=== PATIENT | female | born 1995 | race Caucasian/White ===

== ENCOUNTER 2019-06-20 11:58 | Inpatient (IN) | payer MEDICAID ==
[~2019-06-20] VITALS: Ht 167.6 cm; Wt 100.7 kg
[2019-06-20 12:00] VITALS: BP_SYST 121
[2019-06-20] MEDS ORDERED: MORPHINE 4 MG/ML INJ. SYRINGE IVP ONE ×2 (13:30→16:15)
[2019-06-20] MEDS ORDERED: DIPHENHYDRAMINE INJ 50 MG/ML VIAL IVP ONE ×2 (13:30→16:15)
[2019-06-20] MEDS ORDERED: NACL 0.9% 1,000 ML IV ONE ×2 (13:30→18:00)
[2019-06-20 14:32] LABS: BASOPHILS # (AUTO) 0.2 K/uL (0.0-0.2); BASOPHILS % (AUTO) 1.4 % (0.0-2.0); EOSINOPHILS # (AUTO) 0.2 K/uL (0.0-0.4); EOSINOPHILS % (AUTO) 1.1 % (0.0-4.0); HEMATOCRIT 43.7 % (36-48); HEMOGLOBIN 15.2 g/dL (12.0-16.0); LYMPHOCYTES # (AUTO) 3.8 K/uL (1.0-5.5); LYMPHOCYTES % (AUTO) 25.7 % (20.5-51.5); MEAN CORPUSCULAR HEMOGLOBIN 31 pg (27-31); MEAN CORPUSCULAR HGB CONC 35 % (32-36); MEAN CORPUSCULAR VOLUME 88 fL (79.0-98.0); MONOCYTES # (AUTO) 0.8 K/uL (0.0-1.0); MONOCYTES % (AUTO) 5.2 % (1.7-9.3); NEUTROPHILS # (AUTO) 9.8 K/uL (1.8-7.7); NEUTROPHILS % (AUTO) 66.6 % (40.0-70.0); PLATELET COUNT (AUTO) 459 K/uL (130-430); RED BLOOD CELL COUNT(AUTO) 4.98 MIL/uL (4.2-6.2); RED CELL DISTRIBUTION WIDTH 12.7 % (9.0-15.0); WHITE BLOOD COUNT (AUTO) 14.7 K/uL (4.8-10.8)
[2019-06-20 15:06] LABS: CALCIUM 9.6 mg/dL (8.4-11.0); CREATININE 0.65 mg/dL (0.55-1.30); POTASSIUM 4.2 mmol/L (3.5-5.1)
[2019-06-20 15:11] LABS: ALBUMIN 4.2 g/dL (3.4-4.8); TOTAL BILIRUBIN 0.5 mg/dL (0.0-1.0)
[2019-06-20 15:36] LABS: BILIRUBIN,URINE NEGATIVE (NEGATIVE); BLOOD, URINE 3+ (NEGATIVE); COLOR,URINE YELLOW (YELLOW); GLUCOSE,URINE TRACE (NEGATIVE); KETONES,URINE NEGATIVE (NEGATIVE); LEUKOCYTE ESTERASE ,URINE NEGATIVE (NEGATIVE); NITRITE, URINE NEGATIVE (NEGATIVE); PROTEIN URINE 2+ (NEGATIVE); UROBILINOGEN,URINE 0.2 (0.2-1.0)
[2019-06-20 15:40] LABS: CLARITY/URINE CLOUDY (CLEAR)
[2019-06-20 15:44] LABS: BACTERIA,URINE MANY /HPF (None Seen); WBC,URINE 0-3 /HPF (0-3)
[2019-06-20] MEDS ORDERED: cefTRIAXone 1 GM in D5W 50 ML IV ONE (15:45)
[2019-06-20] MEDS ORDERED: cefTRIAXone 1 GM IVPB PREMIX 50 ML IV ONE (16:10)
[2019-06-20] MEDS ORDERED: METFORMIN PO (17:35)
[2019-06-20] MEDS ORDERED: PROPOFOL 200MG/ 20ML VIAL (DIPRIVAN) IV ONE (18:15)
[2019-06-20] MEDS ORDERED: SEVOFLURANE 15 MIN GAS INH ONE (18:15)
[2019-06-20] MEDS ORDERED: LR 1,000 ML IV.SOLN IV ONE (18:15)
[2019-06-20] MEDS ORDERED: ROCURONIUM BROMIDE 10 MG/ML (ZEMURON) IV ONE (18:15)
[2019-06-20] MEDS ORDERED: GLYCOPYRROLATE 0.2 MG/ML VIAL IJ ONE (18:15)
[2019-06-20] MEDS ORDERED: NEOSTIGMINE METHYLSULFATE 1 MG/ML, 10 ML VIAL IVP ONE (18:15)
[2019-06-20] MEDS ORDERED: KETOROLAC TROMETHAMINE 30 MG VIAL IVP ONE (18:15)
[2019-06-20] MEDS ORDERED: ONDANSETRON HCL 4 MG/2 ML VIAL IVP ONE (18:15)
[2019-06-20] MEDS ORDERED: fentaNYL CITRATE 250 MCG/5 ML AMP IV ONE (18:15)
[2019-06-20] MEDS ORDERED: CEFAZOLIN 2 GM IVPB PREMIX 50 ML IV ONE (18:15)
[2019-06-20] MEDS ORDERED: BUPIVACAINE /EPINEPHRINE/PF 0.5% 30 ML VIAL INJ ONE (18:15)
[2019-06-20] MEDS ORDERED: MIDAZOLAM HCL 5 MG/5 ML VIAL IVP ONE (18:15)
[2019-06-20] MEDS ORDERED: METOCLOPRAMIDE HCL 10 MG/2 ML VIAL IVP PRN (21:00)
[2019-06-20] MEDS ORDERED: ACETAMINOPHEN 325 MG TABLET PO PRN (21:00)
[2019-06-20] MEDS ORDERED: ONDANSETRON HCL 4 MG/2 ML VIAL IVP PRN (21:00)
[2019-06-20] MEDS ORDERED: DEXTROSE 50% JECT 50 ML DISP.SYRIN IVP PRN (21:00)
[2019-06-20] MEDS ORDERED: MORPHINE 4 MG/ML INJ. SYRINGE IVP PRN (21:00)
[2019-06-20] MEDS ORDERED: MORPHINE 2 MG/ML INJ. SYRINGE IVP PRN (21:00)
[2019-06-20 21:26] VITALS: BP_SYST 116
[2019-06-20 22:20] VITALS: BP_SYST 103
[2019-06-20] MEDS: INSULIN REGULAR, HUMAN 100 UNITS/ML, 10 ML VIAL (humuLIN R) SUBCUT PRN (22:38)
[2019-06-20 23:30] VITALS: BP_SYST 100
[2019-06-21] MEDS: INSULIN REGULAR, HUMAN 100 UNITS/ML, 10 ML VIAL (humuLIN R) SUBCUT PRN ×3 (06:06→22:17)
[2019-06-21 08:00] VITALS: BP_SYST 126
[2019-06-21] MEDS ORDERED: DEXAMETHASONE SOD PHOSPHATE 10 MG/ML VIAL IVP ONE (09:45)
[2019-06-21] MEDS ORDERED: DEXAMETHASONE SOD PHOSPHATE 4 MG/ML VIAL IVP ONE (09:45)
[2019-06-21 12:00] VITALS: BP_SYST 116
[2019-06-21] MEDS: cefTRIAXone 1 GM IVPB PREMIX 50 ML IV SCH (15:51)
[2019-06-21 16:28] VITALS: BP_SYST 112
[2019-06-21 16:48] LABS: PROTHROMBIN TIME 10.4 SECS (9.5-12.5)
[2019-06-21] MEDS ORDERED: THROMBIN (BOVINE) 5000 UNITS/ VIAL TP ONE (18:33)
[2019-06-21] MEDS ORDERED: POLYMYXIN 500,000/BACIT.10,000 UNITS in NS IRR 1 L IR ONE (18:33)
[2019-06-21] MEDS ORDERED: KETOROLAC TROMETHAMINE 30 MG VIAL IVP PRN (19:30)
[2019-06-21] MEDS ORDERED: fentaNYL CITRATE/PF 100 MCG/2 ML AMP IVP PRN (19:30)
[2019-06-21] MEDS ORDERED: ONDANSETRON HCL 4 MG/2 ML VIAL IVP PRN ×2 (19:30→21:00)
[2019-06-21] MEDS ORDERED: ZOLPIDEM TARTRATE 5 MG TABLET PO PRN (21:00)
[2019-06-21] MEDS ORDERED: HYDROmorphone 1 MG INJ. 1 MG/ML AMPUL IVP PRN ×2 (21:00)
[2019-06-21] MEDS ORDERED: HYDROcodone/ACETAMIN 10-325 MG TAB PO PRN (21:00)
[2019-06-21] MEDS ORDERED: HYDROmorphone 2 MG/ML VIAL IVP PRN (21:00)
[2019-06-21] MEDS ORDERED: METHOCARBAMOL 500 MG TABLET PO PRN (21:00)
[2019-06-21] MEDS: fentaNYL CITRATE/PF 100 MCG/2 ML AMP IVP PRN ×2 (21:41→21:49)
[2019-06-21] MEDS ORDERED: fentaNYL CITRATE/PF 100 MCG/2 ML AMP ONE (21:54)
[2019-06-21 22:08] VITALS: BP_SYST 102
[2019-06-21 23:00] VITALS: BP_SYST 102
[2019-06-21] MEDS: DOCUSATE SODIUM 100 MG CAPSULE PO SCH (23:19)
[2019-06-21] MEDS: KCL 20 mEq in D5NS 1000 mL 1,000 ML IV SCH (23:21)
[2019-06-21] MEDS ORDERED: KCL 20 mEq in D5NS 1000 mL 1,000 ML IV ONE (23:22)
[2019-06-21] MEDS ORDERED: CEFAZOLIN 2 GM IVPB PREMIX 50 ML IV ONE (23:22)
[2019-06-21] MEDS: CEFAZOLIN 2 GM IVPB PREMIX 50 ML IV SCH (23:23)
[2019-06-22] MEDS: INSULIN REGULAR, HUMAN 100 UNITS/ML, 10 ML VIAL (humuLIN R) SUBCUT PRN ×3 (05:07→16:55)
[2019-06-22 07:57] VITALS: BP_SYST 105
[2019-06-22] MEDS ORDERED: DOCUSATE SODIUM 100 MG CAPSULE PO ONE (08:38)
[2019-06-22] MEDS: DOCUSATE SODIUM 100 MG CAPSULE PO SCH ×2 (08:39→22:14)
[2019-06-22] MEDS: CEFAZOLIN 2 GM IVPB PREMIX 50 ML IV SCH ×2 (08:39→15:39)
[2019-06-22] MEDS: KCL 20 mEq in D5NS 1000 mL 1,000 ML IV SCH (09:00)
[2019-06-22 12:20] VITALS: BP_SYST 112
[2019-06-22 16:31] VITALS: BP_SYST 119
[2019-06-22] MEDS: cefTRIAXone 1 GM IVPB PREMIX 50 ML IV SCH (16:35)
[2019-06-22] MEDS: HYDROcodone/ACETAMIN 10-325 MG TAB PO PRN (18:52)
[2019-06-22 20:00] VITALS: BP_SYST 119
[2019-06-23] MEDS: INSULIN REGULAR, HUMAN 100 UNITS/ML, 10 ML VIAL (humuLIN R) SUBCUT PRN ×2 (01:18→11:35)
[2019-06-23] MEDS: KCL 20 mEq in D5NS 1000 mL 1,000 ML IV SCH ×3 (03:00→14:23)
[2019-06-23 08:00] VITALS: BP_SYST 101
[2019-06-23] MEDS: HYDROcodone/ACETAMIN 10-325 MG TAB PO PRN ×2 (08:05→14:16)
[2019-06-23] MEDS: DOCUSATE SODIUM 100 MG CAPSULE PO SCH (08:44)
[2019-06-23 11:19] VITALS: BP_SYST 107
[2019-06-23 13:55] VITALS: BP_SYST 100
== END 2019-06-23 15:30 | disposition home or self-care (01) | DRG 310 ==
LOC: SED 11:58 → SMU 16:15
PROVIDERS: ADMIT Internal Medicine Hospice and Palliative Medicine; ATTEND Internal Medicine Hospice and Palliative Medicine
PROC: 01NB0ZZ Release Lumbar Nerve, Open Approach (ICD-10-PCS; 2019-06-21)
PROC: 4A11X4G Monitoring of Peripheral Nervous Electrical Activity, Intraoperative, External Approach (ICD-10-PCS; 2019-06-21)
PROC: 0SB20ZZ Excision of Lumbar Vertebral Disc, Open Approach (ICD-10-PCS; principal; 2019-06-21 18:15)
DX: M51.16 Intervertebral disc disorders with radiculopathy, lumbar region (principal); E11.9 Type 2 diabetes mellitus without complications; I10 Essential (primary) hypertension; N39.0 Urinary tract infection, site not specified; Z79.899 Other long term (current) drug therapy
CPT/HCPCS: 36415; 72131; 72148; 76000; 80053; 81000-TC; 82962; 83605; 84702-TC; 85025; 85610-TC; 85730-TC; 86886; 86900; 86901; 87040-TC; 87081; 87086; 87186-TC; 94010; 96361; 96365; 96375; 96376; 99285; J0690; J0696; J1100; J1170; J1200; J1815; J1885; J2250; J2270; J2405; J2704; J2710; J3010; J3490; J7030; J7120